=== PATIENT | male | born 1980 | race Caucasian/White ===

== ENCOUNTER → 2019-01-15 15:13 | Outpatient (CLI) | payer MEDICARE, MEDICAID, SELFPAY ==
[2019-01-15 17:46] LABS: Absolute Lymphocyte Count 2.09 X10^3/uL (0.83-4.51); Absolute Neutrophil Count 6.1 X10^3/uL (2.0-7.7); Basophil# 0.07 X10^3/uL; Basophil% 0.7 % (0-1); Eosinophils% 3.1 % (0-5); Hematocrit 48.4 % (40-54); Lymphocyte # 2.09 X10^3/ul (4.0); Lymphocyte % 21.9 % (19-41); Mean Corp Hgb Conc 33.1 g/dL (32-36); Mean Corpuscular Hgb 28.8 pg (27.0-32.0); Mean Corpuscular Volume 87.2 fL (80-94); Mean Platelet Vol. 11.3 fl (6.2-12.0); Monocyte# 0.91 X10^3/uL; Monocyte% 9.5 % (0-10); NRBC Flagged by Analyzer 0 % (0-5); Neutrophil # 6.14 X10^3/uL (2.7-7.7); Neutrophil % 64.4 % (47-70); Platelet Count 289 K/mm3 (150-450); RBC Distribution Width CV 13.2 % (11.6-14.6); RBC Distribution Width SD 42.2 fl (35.1-43.9); Red Blood Count 5.55 M/mm3 (4.6-6.2); White Blood Count 9.6 K/mm3 (4.4-11.0)
[2019-01-15 18:22] LABS: ALB/GLOB Ratio 1.1 RATIO (0.9-2.4); AST(SGOT) 18 U/L (15-37); Alanine Aminotransfer ALT/SGPT 46 U/L (16-61); Albumin, Serum 3.9 g/dL (3.2-5.0); Alkaline Phosphatase 57 U/L (45-117); Anion Gap 9 (5-15); BUN 17 mg/dL (7-18); BUN/Creat Ratio 17.2 RATIO (10-20); Chloride 107 mmol/L (98-107); Cholesterol 134 mg/dL (200); Creatinine, Serum 0.99 mg/dL (0.70-1.30); EST Glomerular Filtration Rate 89 mL/min (>60); Est Glom Filt Rate - Afr Amer 108 mL/min (>60); Globulin 3.4 g/dL (2.2-4.2); Glucose 80 mg/dL (74-106); High Density Lipoprotein 36 mg/dL; Potassium 4.6 mmol/L (3.5-5.1); Protein, Total 7.3 g/dL (6.4-8.2); Sodium Level 143 mmol/L (136-145); T4 Free Direct 0.91 ng/dL (0.76-1.46); Triglycerides 186 mg/dL; Very Low Density Lipoprotein 37 mg/dL (5-40)
[2019-01-15 18:28] LABS: Hemoglobin A1c 5.4 % (4.2-6.3)
== END ==
PROVIDERS: Family Provider Family Medicine; PCP Family Medicine; Referring Provider Family Medicine; Visit Provider Family Medicine
DX: Z00.00 Encounter for general adult medical examination without abnormal findings (principal); E04.1 Nontoxic single thyroid nodule
CPT/HCPCS: 36415; 80053; 80061; 83036; 84439; 84443; 85025

== ENCOUNTER → 2019-01-22 13:51 | Outpatient (CLI) | payer MEDICARE, MEDICAID, SELFPAY ==
--- NOTE | 2019-01-22 13:58 | US_ITS ---
STUDY: THYROID ULTRASOUND REASON FOR EXAM: Male, 38 years old. Nodule palpated on exam. Nodule felt on exam. TECHNIQUE: Ultrasound evaluation of the thyroid was performed with real-time and static lyons-scale imaging. COMPARISON: None. FINDINGS: RIGHT LOBE: The right lobe of the thyroid gland measures 5.1 x 1.9 x 1.5 cm. There is a homogeneous echotexture. There are no demonstrated solid, cystic or complex lesions. Normal vascularity LEFT LOBE: The left lobe of the thyroid gland measures 4.8 x 1.5 x 1 point cm. There is a homogeneous echotexture. There are no demonstrated solid, cystic or complex lesions. Normal vascularity ISTHMUS: The isthmus measures 0.4 cm. The regional lymph nodes are normal. US/Thyroid IMPRESSION: Normal ultrasound examination of the thyroid. Electronically Signed: Mark Russell DO at 23:04 EDT Tel [phone], Service support ,
== END ==
PROVIDERS: Family Provider Family Medicine; PCP Family Medicine; Referring Provider Family Medicine; Visit Provider Family Medicine
DX: E04.1 Nontoxic single thyroid nodule (principal)
CPT/HCPCS: 76536

== ENCOUNTER 2021-09-29 10:26 | Outpatient (CLI) | payer MEDICAID, SELFPAY ==
[2021-09-29 12:18] LABS: Absolute Neutrophil Count 4.9 X10^3/uL (2.0-7.7); Basophil# 0.07 X10^3/uL; Basophil% 0.9 % (0-1); Eosinophil# 0.54 X10^3/uL; Eosinophils% 6.6 % (0-5); Hematocrit 47.7 % (40-54); Hemoglobin 16.3 g/dL (13.0-16.5); Lymphocyte % 22.1 % (19-41); Mean Corp Hgb Conc 34.2 g/dL (32-36); Mean Corpuscular Hgb 29.3 pg (27.0-32.0); Mean Corpuscular Volume 85.8 fL (80-94); Mean Platelet Vol. 11.3 fl (6.2-12.0); Monocyte# 0.78 X10^3/uL; Monocyte% 9.6 % (0-10); NRBC Flagged by Analyzer 0 % (0-5); Neutrophil # 4.93 X10^3/uL (2.7-7.7); Neutrophil % 60.4 % (47-70); Platelet Count 281 K/mm3 (150-450); RBC Distribution Width CV 13.6 % (11.6-14.6); RBC Distribution Width SD 42.7 fl (35.1-43.9); Red Blood Count 5.56 M/mm3 (4.6-6.2); White Blood Count 8.2 K/mm3 (4.4-11.0)
[2021-09-29 13:00] LABS: AST(SGOT) 19 U/L (15-37); Alanine Aminotransfer ALT/SGPT 40 U/L (16-61); Albumin, Serum 3.8 g/dL (3.2-5.0); Alkaline Phosphatase 48 U/L (45-117); Anion Gap 4 (5-15); BUN 14 mg/dL (7-18); Calcium,Total 9.1 mg/dL (8.5-10.1); Chloride 110 mmol/L (98-107); Cholesterol 127 mg/dL (200); EST Glomerular Filtration Rate 87 mL/min (>60); Est Glom Filt Rate - Afr Amer 105 mL/min (>60); Globulin 3.8 g/dL (2.2-4.2); Glucose 96 mg/dL (74-106); High Density Lipoprotein 49 mg/dL; Potassium 4.3 mmol/L (3.5-5.1); Protein, Total 7.6 g/dL (6.4-8.2); Sodium Level 138 mmol/L (136-145); Thyroid Stim Hormone (TSH) 1.14 uIU/mL (0.358-3.74); Triglycerides 52 mg/dL; Very Low Density Lipoprotein 10 mg/dL (5-40)
== END 2021-09-29 23:59 | disposition home or self-care (01) ==
LOC: MFPLAB 10:31
PROVIDERS: PCP Family Medicine; Referring Provider Family Medicine; Visit Provider Family Medicine
DX: E66.9 Obesity, unspecified (principal)
CPT/HCPCS: 36415; 80053; 80061; 84443; 85025

== ENCOUNTER → 2022-04-20 | Outpatient (CLI) | payer MEDICARE, SELFPAY ==
--- NOTE | 2022-04-20 14:05 | RAD_ITS ---
STUDY: X-RAY CHEST REASON FOR EXAM: Male, 41 years old. SHORTNESS OF BREATH TECHNIQUE: PA or AP. Lateral. COMPARISON: None. FINDINGS: The lungs are clear and expanded. There is no demonstrated pleural abnormality. Normal size heart. Normal mediastinum and benson. Normal visualized pulmonary arteries. Normal visualized aortic arch and descending thoracic aorta. Mild degenerative changes mid thoracic spine. Normal visualized ribs, clavicles, and shoulders. There is no demonstrated abnormality of the visualized soft tissue structures of the upper abdomen. RAD/Chest PA and Lateral IMPRESSION: Mild degenerative changes mid thoracic spine. Electronically Signed: Abdi Keys MD, JAY at 16:57 EDT ,
[2022-04-20 15:24] LABS: Hematocrit 48.8 % (40-54); Hemoglobin 17.3 g/dL (13.0-16.5); Mean Corp Hgb Conc 35.5 g/dL (32-36); Mean Corpuscular Hgb 30.2 pg (27.0-32.0); Mean Corpuscular Volume 85.2 fL (80-94); Mean Platelet Vol. 11.3 fl (6.2-12.0); Platelet Count 294 K/mm3 (150-450); RBC Distribution Width CV 13.3 % (11.6-14.6); RBC Distribution Width SD 41.3 fl (35.1-43.9); Red Blood Count 5.73 M/mm3 (4.6-6.2)
[2022-04-20 15:36] LABS: Anion Gap 5 (5-15); BUN 21 mg/dL (7-18); BUN/Creat Ratio 22.7 RATIO (10-20); Calcium,Total 9.1 mg/dL (8.5-10.1); Chloride 109 mmol/L (98-107); Creatinine, Serum 0.92 mg/dL (0.70-1.30); EST Glomerular Filtration Rate 95 mL/min (>60); Est Glom Filt Rate - Afr Amer 115 mL/min (>60); Glucose 85 mg/dL (74-106); Sodium Level 139 mmol/L (136-145); Troponin-I HS 5 pg/mL (3.0-78.0)
== END | disposition home or self-care (01) ==
PROVIDERS: PCP Family Medicine; Referring Provider Family Medicine; Visit Provider Family Medicine
DX: R06.02 Shortness of breath (principal)
CPT/HCPCS: 36415; 71046; 80048; 84484; 85027

== ENCOUNTER → 2022-10-05 | Outpatient (CLI) | payer MEDICARE, SELFPAY ==
[2022-10-05 13:26] LABS: AST(SGOT) 27 U/L (15-37); Alanine Aminotransfer ALT/SGPT 53 U/L (16-61); Albumin, Serum 3.9 g/dL (3.2-5.0); Alkaline Phosphatase 54 U/L (45-117); Anion Gap 4 (5-15); BUN 17 mg/dL (7-18); BUN/Creat Ratio 16.5 RATIO (10-20); Calcium,Total 9.2 mg/dL (8.5-10.1); Chloride 109 mmol/L (98-107); Cholesterol 139 mg/dL (200); Creatinine, Serum 1.03 mg/dL (0.70-1.30); EST Glomerular Filtration Rate 84 mL/min (>60); Est Glom Filt Rate - Afr Amer 101 mL/min (>60); Globulin 3.9 g/dL (2.2-4.2); Glucose 85 mg/dL (74-106); High Density Lipoprotein 43 mg/dL; Potassium 3.6 mmol/L (3.5-5.1); Protein, Total 7.8 g/dL (6.4-8.2); Sodium Level 138 mmol/L (136-145); Triglycerides 94 mg/dL; Very Low Density Lipoprotein 19 mg/dL (5-40)
== END | disposition home or self-care (01) ==
LOC: MFPLAB 10:35
PROVIDERS: PCP Family Medicine; Visit Provider Family Medicine
DX: E66.01 Morbid (severe) obesity due to excess calories (principal)
CPT/HCPCS: 36415; 80053; 80061

== ENCOUNTER → 2023-04-19 | Outpatient (CLI) | payer MEDICARE, SELFPAY ==
[2023-04-19 12:13] LABS: Absolute Lymphocyte Count 1.65 X10^3/uL (0.83-4.51); Absolute Neutrophil Count 5.6 X10^3/uL (2.0-7.7); Basophil# 0.07 X10^3/uL; Basophil% 0.8 % (0-1); Eosinophil# 0.13 X10^3/uL; Eosinophils% 1.5 % (0-5); Hematocrit 50.4 % (40-54); Hemoglobin 17.2 g/dL (13.0-16.5); Lymphocyte # 1.65 X10^3/ul (0.83-4.51); Lymphocyte % 19.6 % (19-41); Mean Corp Hgb Conc 34.1 g/dL (32-36); Mean Corpuscular Hgb 29.1 pg (27.0-32.0); Mean Corpuscular Volume 85.3 fL (80-94); Monocyte# 0.89 X10^3/uL; Monocyte% 10.6 % (0-10); NRBC Flagged by Analyzer 0 % (0-5); Neutrophil # 5.62 X10^3/uL (2.7-7.7); Platelet Count 307 K/mm3 (150-450); RBC Distribution Width CV 13.2 % (11.6-14.6); RBC Distribution Width SD 41.3 fl (35.1-43.9); Red Blood Count 5.91 M/mm3 (4.6-6.2); White Blood Count 8.4 K/mm3 (4.4-11.0)
[2023-04-19 13:06] LABS: ALB/GLOB Ratio 0.8 RATIO (0.9-2.4); AST(SGOT) 21 U/L (15-37); Alanine Aminotransfer ALT/SGPT 60 U/L (16-61); Albumin, Serum 3.7 g/dL (3.2-5.0); Alkaline Phosphatase 58 U/L (45-117); Anion Gap 5 (5-15); BUN 14 mg/dL (7-18); Calcium,Total 9.3 mg/dL (8.5-10.1); Chloride 106 mmol/L (98-107); Cholesterol 138 mg/dL (200); Creatinine, Serum 1.17 mg/dL (0.70-1.30); EST Glomerular Filtration Rate 72 mL/min (>60); Est Glom Filt Rate - Afr Amer 87 mL/min (>60); Globulin 4.4 g/dL (2.2-4.2); Glucose 109 mg/dL (74-106); High Density Lipoprotein 40 mg/dL; Protein, Total 8.1 g/dL (6.4-8.2); Sodium Level 136 mmol/L (136-145); Triglycerides 89 mg/dL; Very Low Density Lipoprotein 18 mg/dL (5-40)
[2023-04-22 09:34] LABS: Ferritin 166 ng/mL (26-388); Iron 97 ug/dL (65-175); Iron Binding Capacity,Total 326 ug/dL (250-450); PERCENT IRON SATURATION 29.8 % (15.0-55.0)
[2023-04-22 10:15] LABS: Hemoglobin A1c 5.3 % (3.8-5.6)
== END | disposition home or self-care (01) ==
LOC: MFPLAB 09:58
PROVIDERS: PCP Family Medicine; Visit Provider Family Medicine
DX: D75.1 Secondary polycythemia (principal); E66.01 Morbid (severe) obesity due to excess calories; R73.09 Other abnormal glucose
CPT/HCPCS: 36415; 80053; 80061; 82728; 83036; 83540; 83550; 85025

== ENCOUNTER → 2023-10-18 | Outpatient (CLI) | payer MEDICARE, SELFPAY ==
[2023-10-18 12:18] LABS: Absolute Lymphocyte Count 1.78 X10^3/uL (0.83-4.51); Absolute Neutrophil Count 5.8 X10^3/uL (2.0-7.7); Basophil# 0.08 X10^3/uL; Basophil% 0.9 % (0-1); Eosinophil# 0.18 X10^3/uL; Hematocrit 50.3 % (40-54); Hemoglobin 17.2 g/dL (13.0-16.5); Lymphocyte # 1.78 X10^3/ul (0.83-4.51); Lymphocyte % 20.2 % (19-41); Mean Corp Hgb Conc 34.2 g/dL (32-36); Mean Corpuscular Hgb 28.5 pg (27.0-32.0); Mean Corpuscular Volume 83.3 fL (80-94); Mean Platelet Vol. 10.6 fl (6.2-12.0); Monocyte# 0.93 X10^3/uL; Monocyte% 10.6 % (0-10); NRBC Flagged by Analyzer 0 % (0-5); Neutrophil # 5.81 X10^3/uL (2.7-7.7); Neutrophil % 66.1 % (47-70); Platelet Count 281 K/mm3 (150-450); RBC Distribution Width CV 13.4 % (11.6-14.6); Red Blood Count 6.04 M/mm3 (4.6-6.2); White Blood Count 8.8 K/mm3 (4.4-11.0)
[2023-10-18 13:20] LABS: AST(SGOT) 25 U/L (15-37); Alanine Aminotransfer ALT/SGPT 52 U/L (16-61); Albumin, Serum 3.9 g/dL (3.2-5.0); Alkaline Phosphatase 56 U/L (45-117); Anion Gap 7 (5-15); BUN 16 mg/dL (7-18); BUN/Creat Ratio 13.4 RATIO (10-20); Calcium,Total 9.4 mg/dL (8.5-10.1); Chloride 109 mmol/L (98-107); Cholesterol 146 mg/dL (200); Creatinine, Serum 1.19 mg/dL (0.70-1.30); EST Glomerular Filtration Rate 70 mL/min (>60); Est Glom Filt Rate - Afr Amer 85 mL/min (>60); Globulin 4.1 g/dL (2.2-4.2); Glucose 99 mg/dL (74-106); High Density Lipoprotein 39 mg/dL; Sodium Level 138 mmol/L (136-145); Thyroid Stim Hormone (TSH) 2.19 uIU/mL (0.358-3.74); Triglycerides 111 mg/dL; Very Low Density Lipoprotein 22 mg/dL (5-40)
== END | disposition home or self-care (01) ==
LOC: MFPLAB 10:24
PROVIDERS: PCP Family Medicine; Visit Provider Family Medicine
DX: E66.01 Morbid (severe) obesity due to excess calories (principal); Z83.3 Family history of diabetes mellitus
CPT/HCPCS: 36415; 80053; 80061; 84443; 85025

== ENCOUNTER → 2024-04-24 | Outpatient (CLI) | payer MEDICARE, MEDICAID, SELFPAY ==
[2024-04-24 12:28] LABS: Absolute Lymphocyte Count 1.89 X10^3/uL (0.83-4.51); Absolute Neutrophil Count 6.3 X10^3/uL (2.0-7.7); Basophil# 0.09 X10^3/uL; Basophil% 0.9 % (0-1); Eosinophil# 0.18 X10^3/uL; Eosinophils% 1.9 % (0-5); Hematocrit 50.2 % (40-54); Hemoglobin 16.8 g/dL (13.0-16.5); Lymphocyte # 1.89 X10^3/ul (0.83-4.51); Lymphocyte % 19.7 % (19-41); Mean Corp Hgb Conc 33.5 g/dL (32-36); Mean Corpuscular Hgb 28.8 pg (27.0-32.0); Mean Corpuscular Volume 86.1 fL (80-94); Mean Platelet Vol. 10.9 fl (6.2-12.0); Monocyte# 1.04 X10^3/uL; Monocyte% 10.9 % (0-10); NRBC Flagged by Analyzer 0 % (0-5); Neutrophil # 6.34 X10^3/uL (2.7-7.7); Neutrophil % 66.2 % (47-70); Platelet Count 311 K/mm3 (150-450); RBC Distribution Width CV 13.5 % (11.6-14.6); RBC Distribution Width SD 42.3 fl (35.1-43.9); Red Blood Count 5.83 M/mm3 (4.6-6.2); White Blood Count 9.6 K/mm3 (4.4-11.0)
[2024-04-24 13:16] LABS: ALB/GLOB Ratio 0.9 RATIO (0.9-2.4); AST(SGOT) 34 U/L (15-37); Alanine Aminotransfer ALT/SGPT 75 U/L (16-61); Albumin, Serum 3.9 g/dL (3.2-5.0); Alkaline Phosphatase 60 U/L (45-117); Anion Gap 5 (5-15); BUN 13 mg/dL (7-18); BUN/Creat Ratio 11.4 RATIO (10-20); Calcium,Total 9.5 mg/dL (8.5-10.1); Chloride 108 mmol/L (98-107); Cholesterol 143 mg/dL (200); Creatinine, Serum 1.14 mg/dL (0.70-1.30); EST Glomerular Filtration Rate 74 mL/min (>60); Est Glom Filt Rate - Afr Amer 89 mL/min (>60); Globulin 4.2 g/dL (2.2-4.2); Glucose 96 mg/dL (74-106); High Density Lipoprotein 41 mg/dL; Potassium 4.1 mmol/L (3.5-5.1); Protein, Total 8.1 g/dL (6.4-8.2); Sodium Level 138 mmol/L (136-145); Triglycerides 92 mg/dL; Very Low Density Lipoprotein 18 mg/dL (5-40)
== END | disposition home or self-care (01) ==
LOC: MTLAB 10:50
PROVIDERS: PCP Family Medicine; Referring Provider Family Medicine; Visit Provider Family Medicine
DX: I10 Essential (primary) hypertension (principal)
CPT/HCPCS: 36415; 80053; 80061; 85025

== ENCOUNTER → 2024-10-28 | Outpatient (CLI) | payer MEDICARE, MEDICAID, SELFPAY ==
[2024-10-28 12:57] LABS: Absolute Lymphocyte Count 1.99 X10^3/uL (0.83-4.51); Absolute Neutrophil Count 6.2 X10^3/uL (2.0-7.7); Basophil# 0.06 X10^3/uL; Basophil% 0.6 % (0-1); Eosinophil# 0.17 X10^3/uL; Eosinophils% 1.8 % (0-5); Hematocrit 47.9 % (40-54); Hemoglobin 16.5 g/dL (13.0-16.5); Lymphocyte # 1.99 X10^3/ul (0.83-4.51); Mean Corp Hgb Conc 34.4 g/dL (32-36); Mean Corpuscular Volume 87.1 fL (80-94); Mean Platelet Vol. 11.2 fl (6.2-12.0); Monocyte# 1.05 X10^3/uL; Monocyte% 11.1 % (0-10); NRBC Flagged by Analyzer 0 % (0-5); Neutrophil # 6.16 X10^3/uL (2.7-7.7); Neutrophil % 65.1 % (47-70); Platelet Count 308 K/mm3 (150-450); RBC Distribution Width CV 13.3 % (11.6-14.6); RBC Distribution Width SD 42.7 fl (35.1-43.9); White Blood Count 9.5 K/mm3 (4.4-11.0)
[2024-10-28 14:24] LABS: AST(SGOT) 43 U/L (<=37); Alanine Aminotransfer ALT/SGPT 57 U/L (<=46); Albumin, Serum 4.3 g/dL (3.5-5.0); Alkaline Phosphatase 60 U/L (40-129); Anion Gap 12 (5-15); Calcium,Total 9.6 mg/dL (7.6-11.0); Carbon Dioxide 22.3 mmol/L (21.0-32.0); Chloride 105 mmol/L (98-108); Cholesterol 128 mg/dL (<=200); Creatinine, Serum 0.96 mg/dL (0.70-1.20); EST Glomerular Filtration Rate 99 (>60); Glucose 109 mg/dL (70-99); High Density Lipoprotein 36 mg/dL; Magnesium 2.2 mg/dL (1.5-2.2); Potassium 4.2 mmol/L (3.3-5.1); Sodium Level 139 mmol/L (133-145); Total Bilirubin 0.95 mg/dL (0.00-1.30); cholesterol:hdl ratio screen 3.56
[2024-10-28 14:25] LABS: ALB/GLOB Ratio 1.2 RATIO (0.9-2.4); BUN 16 mg/dL (4-19); BUN/Creat Ratio 16.7 RATIO (10-20); Globulin 3.6 g/dL (2.2-4.2); Low Density Lipoprotein Calc. 75 mg/dL; Protein, Total 7.9 g/dL (5.9-8.4); Triglycerides 87 mg/dL; Very Low Density Lipoprotein 17 mg/dL (5-40)
== END | disposition home or self-care (01) ==
LOC: MFPLAB 10:52
PROVIDERS: PCP Family Medicine; Referring Provider Family Medicine; Visit Provider Family Medicine
DX: I10 Essential (primary) hypertension (principal); E66.01 Morbid (severe) obesity due to excess calories; R73.09 Other abnormal glucose
CPT/HCPCS: 36415; 80053; 80061; 83036; 83735; 84443; 85025

== ENCOUNTER → 2024-11-02 | Outpatient (CLI) | payer MEDICARE, MEDICAID, SELFPAY ==
--- NOTE | 2024-11-02 10:33 | US_ITS ---
PROCEDURE: ABDOMEN LIMITED 11/02/2024 REASON FOR EXAM: ELEVATED LFT'S COMPARISON: None FINDINGS: Liver: Diffusely echogenic suggesting fatty infiltration. Hepatomegaly. The liver measures 20.2 cm. Gallbladder: Solitary gallstone measuring 1 cm x 0.9 cm x 0.1 cm. This is in the neck of the gallbladder. Gallbladder wall is not thickened and measures 2.1 cm. Common bile duct: Normal measuring 4.6 mm. . Pancreas: Visualized portions are unremarkable. The distal body and tail are obscured by bowel gas. Other: Right kidney measures 12.8 cm x 5.6 cm 5.1 cm. Cortical thickness measures 1.2 cm. US/Abdomen Limited IMPRESSION: Hepatomegaly and fatty infiltration of the liver. Solitary gallstone measuring 1 cm x 0.9 cm x 0.9 cm in the neck of the gallblad nathalia. Reading Location: [id number]
== END | disposition home or self-care (01) ==
LOC: US 10:33
PROVIDERS: PCP Family Medicine; Referring Provider Family Medicine; Visit Provider Family Medicine
DX: R79.89 Other specified abnormal findings of blood chemistry (principal)
CPT/HCPCS: 76705